=== PATIENT | female | born 1975 | race Caucasian/White ===

== ENCOUNTER 2016-11-16 14:10 | Emergency (ER) | payer OTHER ==
[~2016-11-16] VITALS: Ht 165.1 cm; Wt 56.2 kg
[2016-11-16] MEDS ORDERED: KEPP500T6 PO (14:40)
[2016-11-16] MEDS ORDERED: ALBU17IN INH (14:40)
[2016-11-16] MEDS ORDERED: ATEN25TA PO (14:40)
[2016-11-16] MEDS ORDERED: ZYRT10CA PO (14:40)
[2016-11-16] MEDS ORDERED: ST J150T PO (14:40)
[2016-11-16] MEDS ORDERED: ADV250INH INH (14:40)
[2016-11-16] MEDS ORDERED: SING10TA32 PO (14:40)
[2016-11-16 15:19] LABS: BASO % 0.4 % (0.0-1.0); EOS # 0.1 K/mm3 (0.0-0.50); EOS % 0.6 % (0.0-3.0); LARGE UNSTAINED CELL # 0.1 K/mm3 (0.0-0.4); LARGE UNSTAINED CELL % 1.1 % (0.0-4.0); LYMPH # 3.1 K/mm3 (1.5-4.5); LYMPH % 30.5 % (24.0-44.0); MEAN CORPUSCULAR HEMOGLOBIN 29.3 pg (27.0-33.0); MEAN CORPUSCULAR HGB CONC 33.4 g/dl (32.0-36.5); MEAN CORPUSCULAR VOLUME 87.6 fl (80.0-96.0); MONO # 0.4 K/mm3 (0.0-0.8); MONO % 4.3 % (0.0-5.0); NEUTROPHILS # 6.2 K/mm3 (1.8-7.7); NEUTROPHILS % 63.1 % (36.0-66.0); PLATELET COUNT, AUTOMATED 204 k/mm3 (150-450); RED CELL DISTRIBUTION WIDTH 12.1 % (11.5-14.5); WHITE BLOOD COUNT 9.8 K/mm3 (4.0-10.0)
[2016-11-16 15:41] LABS: ANION GAP 12 MEQ/L (8-16); BLOOD UREA NITROGEN 17 MG/DL (7-18); CARBON DIOXIDE LEVEL 21 MEQ/L (21-32); CHLORIDE LEVEL 110 MEQ/L (98-107); CREATININE FOR GFR 0.81 MG/DL (0.55-1.02); GLOMERULAR FILTRATION RATE > 60.0 (>58); GLUCOSE, FASTING 97 MG/DL (70-105); POTASSIUM SERUM 3.8 MEQ/L (3.5-5.1); SODIUM LEVEL 143 MEQ/L (136-145)
[2016-11-16] MEDS ORDERED: levETIRAcetam INJection 500 MG in D5W MINI-BAG PLUS 100 ML IV ONE (16:45)
[2016-11-16 17:26] VITALS: BP 135/66
--- NOTE | 2016-11-17 07:43 | REP ---
CT BRAIN WITHOUT CONTRAST: CT brain is performed without IV contrast. The ventricles are normal in size and position. There is no midline shift. No abnormal densities are seen. There is no acute hemorrhage. There is no extra-axial fluid collection. Bone window examination is unremarkable. IMPRESSION: Negative noncontrast CT brain. Signed by Sergey Johnson MD 11/17/2016 12:18 P
--- NOTE | 2016-11-17 20:57 | ECGEPIP ---
Stationary ECG Study [facility] - ED Test Date: 2016-11-16 Pat Name: MUMTAZ MIRZA Department: Room: - Gender: F [employer]: : [id number] Requested By: JOSE Prakash Order Number: [id number] Reading MD: Escobar Scott Measurements Intervals [place] Rate: 82 P: 53 SC: 130 QRS: 64 QRSD: 101 T: 49 QT: 390 QTc: 456 Interpretive Statements SINUS RHYTHM DELAYED R WAVE PROGRESSION BORDERLING PROLONGED QTC NO OLD ECG FOR COMPARISON Electronically Signed On 11-17-2016 20:57:29 EDT by Escobar Scott
== END 2016-11-16 17:46 | disposition home or self-care (01) ==
LOC: EDBD 14:10 → M ED 15:50
DX: F44.5 Conversion disorder with seizures or convulsions (principal); J45.909 Unspecified asthma, uncomplicated; F41.9 Anxiety disorder, unspecified; Z87.891 Personal history of nicotine dependence; Z79.899 Other long term (current) drug therapy; Z79.51 Long term (current) use of inhaled steroids

== ENCOUNTER → 2019-05-16 | Outpatient (REF) ==
[~2019-05-16] MED LIST: ADV250INH INH; ALBU17IN INH; ATEN25TA PO; KEPP1TAB PO; SING10TA32 PO; ST J150T PO; ZYRT10CA PO
== END ==
LOC: M LAB LCGH 14:46
PROVIDERS: ATTEND Surgery
DX: R10.30 Lower abdominal pain, unspecified (principal)